=== PATIENT | female | born 1985 | race Caucasian/White ===

== ENCOUNTER 2024-09-06 20:36 | Inpatient (IN) ==
[2024-09-06 21:36] LABS: ABS Basophils 0.1 10^3/uL (0.0-0.1); ABS Eosinophils 0.4 10^3/uL (0.0-0.5); ABS Lymphocytes 2.7 10^3/uL (1.0-4.8); ABS Monocytes 0.8 10^3/uL (0.0-0.9); ABS Neutrophils 9.4 10^3/uL (1.5-7.6); Eosinophil % 3.2 %; Hemoglobin 11.9 g/dL (11.5-14.3); Lymphocyte % 20.2 %; Mean Corpuscular Hemoglobin 25.5 pg (27-33); Mean Corpuscular Hgb Conc 33.1 g/dL (31-36); Mean Corpuscular Volume 77.1 fL (80-97); Mean Platelet Volume 10.4 fL (7.5-11.2); Platelet Count 254 10^3/uL (150-450); Red Blood Count 4.67 10^6/uL (3.63-4.92); Red Cell Distribution Width 15.8 % (12-17); White Blood Count 13.4 10^3/uL (3.8-11.8)
[2024-09-06 21:37] LABS: Urine Appearance Turbid; Urine Bilirubin Negative (Negative); Urine Blood Negative (Negative); Urine Color Yellow; Urine Glucose Negative (Negative); Urine Ketones Negative (Negative); Urine Nitrite Negative (Negative); Urine Protein Trace (Negative); Urine Specific Gravity 1.021 (1.002-1.030); Urine Urobilinogen Negative (Negative); Urine pH 5.5 (5.0-8.0)
[2024-09-06 21:46] LABS: Urine Bacteria 1+ /HPF (Absent); Urine Red Blood Cell 1+(3-5/hpf) /HPF (0-Trace); Urine Squamous Epithelial Cell Present /HPF (Absent); Urine White Blood Cell 1+(6-10/hpf) /HPF (0-Trace)
[2024-09-06 21:58] LABS: Urine Benzodiazepine Screen None Detected (None Detect); Urine Cannabinoids Screen None Detected (None Detect); Urine Opiates Screen None Detected (None Detect)
[2024-09-06 22:20] LABS: ALT 9 U/L (7-52); AST 12 U/L (13-39); Acetaminophen < 15 mcg/mL; Albumin 3.8 g/dL (3.5-5.7); Albumin/Globulin Ratio 1.4 (1-3); Alcohol, S < 13 mg/dL (<13); Alkaline Phosphatase 93 U/L (35-149); Anion Gap 11 mmol/L (2-16); Blood Urea Nitrogen 8 mg/dL (6-24); CO2 Carbon Dioxide 23 mmol/L (22-32); Calcium 9.1 mg/dL (8.6-10.3); Chloride 104 mmol/L (101-111); Creatinine, Serum 0.68 mg/dL (0.51-0.95); Globulin 2.8 g/dL (2-4); Glucose 97 mg/dL (70-100); Potassium 3.6 mmol/L (3.5-5.0); Salicylate < 2.50 mg/dL (<30); Sodium 138 mmol/L (135-145); Total Bilirubin 0.3 mg/dL (0.2-1.0); Total Protein 6.6 g/dL (6.4-8.9); eGFR CKD-EPI 114.3 (>60)
[2024-09-06 22:27] LABS: HCG Pregnancy 2.02 mIU/mL
[2024-09-06 22:35] LABS: TSH Ultra Thyroid Stim Horm 1.38 mcIU/mL (0.34-5.60)
[2024-09-07] MEDS ORDERED: Nicotine GUM 4MG FRUIT FLAVOR PO PRN (10:52)
[2024-09-07] MEDS: Nicotine PATCH 14 MG/24 HR PATCH TRANSDERM SCH (14:46)
[2024-09-07] MEDS: Vitamin THERAPEUTIC TAB PO SCH (15:14)
[2024-09-07] MEDS: ARIPiprazole Maintena (NF) 400 MG SYRINGE IM SCH (17:45)
[2024-09-07] MEDS: Al Hydrox/Mg Hydrox/Simet LIQ 30 ML UDC PO PRN (22:46)
[2024-09-08 08:13] LABS: HDL Cholesterol 32.8 mg/dL
[2024-09-08 10:20] LABS: Hepatitis B Surface Antigen Nonreactive (Nonreactive)
[2024-09-08 10:29] LABS: HIV 4th Generation Nonreactive (Nonreactive)
[2024-09-08 10:37] LABS: Hepatitis B Surface Ab Immune (Immune); Hepatitis C Antibody Negative (Negative)
[2024-09-08 18:07] LABS: Chlamydia trachomatis NAA Negative (Negative); Neisseria gonorrhoeae (GC) NAA Negative (Negative)
[2024-09-11 11:18] LABS: Herpes Simplex Virus I IgG AB Positive (Negative); Herpes Simplex Virus II IgG AB Positive (Negative)
== END 2024-09-09 10:36 | disposition home or self-care (01) | DRG 885 ==
LOC: ED 20:36 → EDHOLD 09-07 00:06 → BSU 09-07 01:37
PROVIDERS: ADMIT Psychiatry & Neurology Psychiatry; ATTEND Psychiatry & Neurology Psychiatry